=== PATIENT | male | born 1990 | race African-American/Black ===

== ENCOUNTER 2017-02-16 22:15 | Emergency (ER) | payer SELFPAY ==
[~2017-02-16] VITALS: Ht 177.8 cm; Wt 86.4 kg
[2017-02-16 23:42] VITALS: BP 129/78
[2017-02-16] MEDS ORDERED: DiphenhydrAMINE HCL 50 MG CAPSULE PO ONE (23:45)
== END 2017-02-16 23:54 | disposition home or self-care (01) ==
LOC: EMS 22:17
DX: S80.861A Insect bite (nonvenomous), right lower leg, initial encounter (principal); S80.862A Insect bite (nonvenomous), left lower leg, initial encounter; S40.861A Insect bite (nonvenomous) of right upper arm, initial encounter; S40.862A Insect bite (nonvenomous) of left upper arm, initial encounter; F12.10 Cannabis abuse, uncomplicated; F17.200 Nicotine dependence, unspecified, uncomplicated; Z88.8 Allergy status to other drugs, medicaments and biological substances
CPT/HCPCS: 99282

== ENCOUNTER 2017-02-25 18:04 | Emergency (ER) | payer SELFPAY ==
[~2017-02-25] VITALS: Ht 175.3 cm; Wt 72.7 kg
[2017-02-25 18:26] VITALS: BP 132/72
== END 2017-02-25 20:03 | disposition left against medical advice (07) ==
LOC: EMS 18:04
DX: R07.2 Precordial pain (principal); F17.210 Nicotine dependence, cigarettes, uncomplicated; F12.90 Cannabis use, unspecified, uncomplicated; Z53.21 Procedure and treatment not carried out due to patient leaving prior to being seen by health care provider
CPT/HCPCS: 93005; 99281

== ENCOUNTER 2017-04-21 20:52 | Inpatient (IN) | payer MEDICAID ==
[~2017-04-21] VITALS: Ht 175.3 cm; Wt 74.6 kg
[2017-04-22] MEDS ORDERED: LITH300C3 PO (00:53)
[2017-04-22] MEDS ORDERED: OLAN10TA6 PO (00:53)
[2017-04-22] MEDS ORDERED: OLANZapine 5 MG RAPDIS TABLET PO PRN (01:15)
[2017-04-22] MEDS ORDERED: ZOLPIDEM TARTRATE 10 MG TABLET PO PRN (01:15)
[2017-04-22] MEDS ORDERED: LORazepam 2 MG TABLET PO PRN (01:15)
[2017-04-22 02:01] VITALS: BP 110/60
[2017-04-22] MEDS ORDERED: INFLUENZA VIRUS VACCINE QVS 2017-18 (3YR+)/PF 60 MCG/0.5 ML SYRINGE IM ONE (04:15)
[2017-04-22 08:18] VITALS: BP 110/60
[2017-04-22 08:49] LABS: CHOL/HDL RATIO 2.9 (4.2-7.3)
[2017-04-22] MEDS ORDERED: PROMETHAZINE HCL 25 MG TABLET PO PRN (11:30)
[2017-04-22] MEDS ORDERED: MAG HYDROX/AL HYDROX/SIMETH ES 30 ML SUSPENSION UDCUP PO PRN (11:30)
[2017-04-22] MEDS ORDERED: GuaiFENesin/D-METHORPHAN [SUGAR-FREE] 200-20MG/10 ML SYRUP UDCUP PO PRN (11:30)
[2017-04-22] MEDS ORDERED: MAGNESIUM HYDROXIDE SUSPENSION 30 ML UDCUP PO PRN (11:30)
[2017-04-22] MEDS ORDERED: TUBERCULIN, PURIFIED PROTEIN DERIVATIVE 5 TU/0.1 ML SYG ID ONE (11:30)
[2017-04-22] MEDS ORDERED: ACETAMINOPHEN 325 MG TABLET PO PRN (11:30)
[2017-04-22] MEDS ORDERED: HydrOXYzine PAMOATE 50 MG CAPSULE PO PRN (11:30)
[2017-04-22] MEDS ORDERED: LOPERAMIDE HCL 2 MG CAPSULE PO PRN (11:30)
[2017-04-22] MEDS ORDERED: OLAN10TA22 PO (15:23)
[2017-04-22] MEDS ORDERED: OXCA300T PO (15:23)
[2017-04-22] MEDS ORDERED: NALT50TA PO (15:23)
[2017-04-22 16:00] VITALS: BP 112/66
[2017-04-22] MEDS: THIAMINE HCL 100 MG TABLET PO SCH (16:10)
[2017-04-22] MEDS ORDERED: LITHIUM CARBONATE 300 MG CAPSULE PO SCH (21:00)
[2017-04-22] MEDS ORDERED: OLANZapine 5 MG RAPDIS TABLET PO SCH (21:00)
[2017-04-22] MEDS ORDERED: OXcarbazepine 300 MG TABLET PO SCH (21:00)
[2017-04-22] MEDS ORDERED: OLANZapine 10 MG RAPDIS TABLET PO SCH (21:00)
[2017-04-23 06:32] VITALS: BP 118/73
[2017-04-23 08:16] VITALS: BP 116/66
[2017-04-23] MEDS ORDERED: OXCA300T PO (08:50)
[2017-04-23] MEDS ORDERED: OLAN7.5T2 PO (08:50)
[2017-04-23] MEDS ORDERED: NALT50TA6 PO (08:50)
[2017-04-23] MEDS ORDERED: FOLIC ACID 1 MG TABLET PO SCH (09:00)
[2017-04-23] MEDS ORDERED: MULTIVITAMINS WITH MINERALS, THERAPEUTIC TABLET PO SCH (09:00)
[2017-04-23] MEDS ORDERED: NICOTINE 21 MG/24 HOUR PATCH TD SCH (09:00)
[2017-04-23] MEDS ORDERED: NALTREXONE HCL 50 MG TABLET PO SCH (09:00)
[2017-04-23] MEDS: THIAMINE HCL 100 MG TABLET PO SCH (09:08)
== END 2017-04-23 11:10 | disposition home or self-care (01) | DRG 750 ==
LOC: EDSTATUS 20:57 → B3A 04-22 01:17
PROVIDERS: ADMIT Psychiatry & Neurology Psychiatry; ATTEND Psychiatry & Neurology Psychiatry
DX: F20.0 Paranoid schizophrenia (principal); R45.851 Suicidal ideations; Z91.19 Patient's noncompliance with other medical treatment and regimen; F14.10 Cocaine abuse, uncomplicated; F31.9 Bipolar disorder, unspecified; F17.200 Nicotine dependence, unspecified, uncomplicated; Z91.5 Personal history of self-harm; Z88.8 Allergy status to other drugs, medicaments and biological substances; Z65.3 Problems related to other legal circumstances; Z59.0 Homelessness

== ENCOUNTER 2017-07-28 18:07 | Inpatient (IN) | payer SELFPAY ==
[~2017-07-28] VITALS: Ht 175.3 cm; Wt 73.6 kg
[~2017-07-28 18:07] MED LIST: NALT50TA PO; NALT50TA6 PO; OLAN10TA22 PO; OLAN7.5T2 PO; OXCA300T PO
[2017-07-28] MEDS ORDERED: OLANZapine 5 MG RAPDIS TABLET PO PRN (19:00)
[2017-07-28 19:25] VITALS: BP 142/72
[2017-07-28 19:45] VITALS: BP 129/75
[2017-07-28] MEDS ORDERED: INFLUENZA VIRUS VACCINE QVS 2017-18 (3YR+)/PF 60 MCG/0.5 ML SYRINGE IM ONE (19:45)
[2017-07-28] MEDS: OXcarbazepine 300 MG TABLET PO SCH (20:43)
[2017-07-28] MEDS: LORazepam 2 MG TABLET PO PRN (20:43)
[2017-07-28] MEDS: ZOLPIDEM TARTRATE 10 MG TABLET PO PRN (20:43)
[2017-07-28] MEDS: OLANZapine 7.5 MG TABLET PO SCH (20:43)
[2017-07-29 06:30] VITALS: BP 123/68
[2017-07-29] MEDS: LORazepam 2 MG TABLET PO PRN ×3 (07:48→20:39)
[2017-07-29 08:14] VITALS: BP 126/78
[2017-07-29 08:14] LABS: BASOPHILS % (AUTO) 0.6 % (0.0-2.0); EOSINOPHILS % (AUTO) 3.5 % (1.0-6.0); HEMATOCRIT 51.7 % (41-53); HEMOGLOBIN 17.8 g/dL (13.5-17.5); LYMPHOCYTES # (AUTO) 1.3 K/uL (1.0-4.8); LYMPHOCYTES % (AUTO) 32.8 % (22.0-44.0); MEAN CORPUSCULAR HEMOGLOBIN 32.2 pg (26.0-34.0); MEAN CORPUSCULAR HGB CONC 34.4 G/dL (31.0-37.0); MEAN CORPUSCULAR VOLUME 94 fL (80-100); MONOCYTES # (AUTO) 0.5 K/uL (0.1-1.0); MONOCYTES % (AUTO) 12.5 % (2.0-9.0); NEUTROPHILS # (AUTO) 2.1 K/uL (1.8-7.7); NEUTROPHILS % (AUTO) 50.6 % (40.0-70.0); PLATELET COUNT (AUTO) 259 K/uL (150-450); RED BLOOD CELL COUNT(AUTO) 5.53 MIL/uL (4.50-5.90); RED CELL DISTRIBUTION WIDTH 13.9 % (11.5-14.5)
[2017-07-29 08:34] LABS: HEMOGLOBIN A1C 5.1 % (4.5-6.2)
[2017-07-29 08:45] LABS: ALANINE AMINOTRANSFERASE 31 U/L (12-78); ALBUMIN 4.4 g/dL (3.4-5.0); ALKALINE PHOSPHATASE 76 U/L (46-116); ANION GAP 9 mmol/L (8-16); ASPARTATE AMINOTRANSFERASE 23 U/L (15-37); BILIRUBIN,TOTAL 1.5 mg/dL (0.1-1.0); CALCIUM, TOTAL 9.6 mg/dL (8.8-10.5); CARBON DIOXIDE 30 mmol/L (22-29); CHLORIDE 101 mmol/L (98-107); CHOL/HDL RATIO 2.3 (4.2-7.3); CHOLESTEROL 195 mg/dL (131-200); CREATININE 1.03 mg/dL (0.60-1.30); FREE T4 (FREE THYROXINE) 0.96 ng/dL (0.76-1.46); GLOMERULAR FILTR. RATE CALC > 60 mL/min (>60); HDL CHOLESTEROL 83 mg/dL (40-60); LDL CHOL (CALC.) 102 mg/dL (0-130); POTASSIUM 4.4 mmol/L (3.5-5.1); SODIUM SERUM 140 mmol/L (136-145); THYROID STIMULATING HORMONE 0.78 uIU/mL (0.36-3.74); TRIGLYCERIDES 48 mg/dL (15-150); UREA NITROGEN, BLOOD 16 mg/dL (7-18)
[2017-07-29 08:52] LABS: GLUCOSE,RANDOM 80 mg/dL (70-110)
[2017-07-29] MEDS: NALTREXONE HCL 50 MG TABLET PO SCH (09:00)
[2017-07-29] MEDS: NICOTINE 21 MG/24 HOUR PATCH TD SCH (09:46)
[2017-07-29] MEDS ORDERED: PROMETHAZINE HCL 25 MG TABLET PO PRN (11:30)
[2017-07-29] MEDS ORDERED: ACETAMINOPHEN 325 MG TABLET PO PRN (11:30)
[2017-07-29] MEDS ORDERED: MAGNESIUM HYDROXIDE SUSPENSION 30 ML UDCUP PO PRN (11:30)
[2017-07-29] MEDS ORDERED: HydrOXYzine PAMOATE 50 MG CAPSULE PO PRN (11:30)
[2017-07-29] MEDS ORDERED: LOPERAMIDE HCL 2 MG CAPSULE PO PRN (11:30)
[2017-07-29] MEDS ORDERED: MAG HYDROX/AL HYDROX/SIMETH ES 30 ML SUSPENSION UDCUP PO PRN (11:30)
[2017-07-29] MEDS ORDERED: GuaiFENesin/D-METHORPHAN [SUGAR-FREE] 200-20MG/10 ML SYRUP UDCUP PO PRN (11:30)
[2017-07-29 16:00] VITALS: BP 130/79
[2017-07-29] MEDS: THIAMINE HCL 100 MG TABLET PO SCH (16:35)
[2017-07-29] MEDS: OLANZapine 7.5 MG TABLET PO SCH (20:38)
[2017-07-29] MEDS: ZOLPIDEM TARTRATE 10 MG TABLET PO PRN (20:39)
[2017-07-29] MEDS: OXcarbazepine 300 MG TABLET PO SCH (20:39)
[2017-07-30] MEDS: LORazepam 2 MG TABLET PO PRN ×3 (00:43→14:20)
[2017-07-30 05:44] VITALS: BP 128/81
[2017-07-30] MEDS: BuPROPion HCL XL 150 MG ER TABLET PO SCH (08:21)
[2017-07-30] MEDS: THIAMINE HCL 100 MG TABLET PO SCH ×2 (08:21→16:06)
[2017-07-30] MEDS: FOLIC ACID 1 MG TABLET PO SCH (08:21)
[2017-07-30] MEDS: NICOTINE 21 MG/24 HOUR PATCH TD SCH (08:21)
[2017-07-30] MEDS: NALTREXONE HCL 50 MG TABLET PO SCH (08:21)
[2017-07-30] MEDS: MULTIVITAMINS WITH MINERALS, THERAPEUTIC TABLET PO SCH (08:21)
[2017-07-30 08:40] VITALS: BP 124/82
[2017-07-30 16:00] VITALS: BP 134/86
[2017-07-30] MEDS ORDERED: OXCA300T PO (16:11)
[2017-07-30] MEDS ORDERED: BUPR-47 PO (16:11)
[2017-07-30] MEDS ORDERED: NALT50TA PO (16:11)
[2017-07-30] MEDS ORDERED: OLAN7.5T9 PO (16:11)
[2017-07-30] MEDS ORDERED: HALOPERIDOL LACTATE 5 MG/ML VIAL IM ONE (17:45)
[2017-07-30] MEDS ORDERED: LORazepam 2 MG/ML VIAL IM ONE (17:45)
[2017-07-30] MEDS ORDERED: DiphenhydrAMINE HCL 50 MG/ML VIAL IM ONE (17:45)
[2017-07-30] MEDS ORDERED: OLANZapine 10 MG TABLET PO SCH (21:00)
[2017-07-30] MEDS: OXcarbazepine 300 MG TABLET PO SCH (21:00)
[2017-07-31 06:18] VITALS: BP 128/82
[2017-07-31] MEDS ORDERED: OLAN20TA17 PO (08:15)
[2017-07-31] MEDS ORDERED: BUPR-47 PO (08:16)
[2017-07-31] MEDS: MULTIVITAMINS WITH MINERALS, THERAPEUTIC TABLET PO SCH (09:12)
[2017-07-31] MEDS: NALTREXONE HCL 50 MG TABLET PO SCH (09:12)
[2017-07-31] MEDS: FOLIC ACID 1 MG TABLET PO SCH (09:12)
[2017-07-31] MEDS: THIAMINE HCL 100 MG TABLET PO SCH (09:12)
[2017-07-31] MEDS: NICOTINE 21 MG/24 HOUR PATCH TD SCH (09:12)
[2017-07-31] MEDS: BuPROPion HCL XL 150 MG ER TABLET PO SCH (09:12)
== END 2017-07-31 11:43 | disposition home or self-care (01) | DRG 885 ==
LOC: B3A 18:54
PROVIDERS: ADMIT Psychiatry & Neurology Psychiatry; ATTEND Psychiatry & Neurology Psychiatry
PROC: 3E0234Z Introduction of Serum, Toxoid and Vaccine into Muscle, Percutaneous Approach (ICD-10-PCS; principal; 2017-07-28)
DX: F20.0 Paranoid schizophrenia (principal); R45.851 Suicidal ideations; Z59.0 Homelessness; F12.90 Cannabis use, unspecified, uncomplicated; F17.200 Nicotine dependence, unspecified, uncomplicated; F32.9 Major depressive disorder, single episode, unspecified; S60.219A Contusion of unspecified wrist, initial encounter; W22.01XA Walked into wall, initial encounter; Z23 Encounter for immunization; Z91.14 Patient's other noncompliance with medication regimen; Z65.3 Problems related to other legal circumstances; Z91.5 Personal history of self-harm; Z88.8 Allergy status to other drugs, medicaments and biological substances; Y93.89 Activity, other specified; Y92.89 Other specified places as the place of occurrence of the external cause
CPT/HCPCS: 83036; 84439; 84443; 90471; J1200; J2060; J3230